=== PATIENT | female | born 1980 | race Caucasian/White ===

== ENCOUNTER → 2016-10-01 | Day surgery (SDC) | payer MEDICAID ==
[~2016-10-01] MED LIST: BREAST PUMP1 MI1; BUPIVACAINE HCL PF 0.25% 30 ML VIAL ONE; CLINDAMYCIN PHOS 600 MG/4 ML VIAL ONE; IBUP800T23 PO; KETOROLAC TROMETHAMINE 30 MG/ML (IVP) VIAL IV PUSH ONE; LACTATED RINGER'S 1000 ML INJ 1,000 ML ONE; MEPERIDINE HCL 25 MG/ML VIAL ONE; MIDAZOLAM HCL 2 MG/2 ML VIAL ONE; PREN0.01 PO; PROPOFOL 200 MG/20 ML AMP IV ONE; SODIUM CHLORIDE 0.9% SOLN 100 ML BAG IV ONE; ZOFR4TAB3 SL
--- NOTE | 2016-10-05 20:11 | MP ---
cc: LAKHWINDER DAVIES DATE OF SURGERY 10/01/16 PREOPERATIVE DIAGNOSIS Patient completed childbearing for elective sterilization. PROCEDURE Laparoscopic bilateral tubal ligation exam under anesthesia. POSTOPERATIVE DIAGNOSIS Patient completed childbearing for elective sterilization. SURGEON Beth Davies MD ANESTHESIA General with LMA ESTIMATED BLOOD LOSS None. DRAINS None OPERATIVE FINDINGS The patient had a retroverted normal-sized uterus, fallopian tubes and adnexa were normal. There was no peritoneal disease. Good pelvic support was noted. INDICATIONS FOR PROCEDURE The patient completed childbearing and consented for permanent sterilization by tubal ligation understanding the potential risks, benefits, complication and failure. DESCRIPTION OF PROCEDURE The patient received clindamycin as an alternative to Ancef for prophylactic antibiotic. She received that prior to going back to the operating room. In the operating room, she underwent general anesthesia with endotracheal intubation using an LMA. She was carefully positioned in dorsolithotomy position with Tunde stirrups on lower extremities and sequentials were placed for VTE prophylaxis. She was prepped and draped. Time-out was conducted agreed by all present in the room. Red Barriga catheter was used to drain the bladder of about 10 mL of clear urine. Chelsea speculum was used to examine the cervix which was midline secured with a single-tooth tenaculum and then uterine sound was placed in a midline position to about 7 cm and then a Hulka tenaculum was used to secure the cervix for manipulation during the procedure. The single tooth was removed. Retractor was removed. Gloves were changed. The abdomen was examined. The umbilicus was injected with 0.25% plain Marcaine about 4 mL. A small stab wound made with a #11 blade allowing access with a visible port trocar using a 5 mm scope. Direct entry into the perineal cavity was accomplished without complication or injury to any adjacent vital structures. Insufflation was conducted at low pressure. The patient was then positioned in Trendelenburg positioning. Suprapubic port was placed under direct vision and again using a 5 mm trocar, the Kassiinger was then utilized to electrodesiccate each fallopian tube. Complete review of the anatomy in the patient's pelvis was completed prior to that the electrodesiccation started just distal to the cornua and continued to the ampulla. Good result was noted. No complication. No bleeding. No hematoma. At the completion of the case, the pneumoperitoneum was decompressed, the trocar were removed and the incisions were closed with subcuticular stitch of 4-0 Monocryl. At the completion of the suture placement Steri-Strips were placed over the incision. The Hulka tenaculum was removed from the cervix with no active bleeding and then the patient was extubated and taken to recovery room on room air. The final count was correct. MD ELI Celaya/ /8:42 AM /8:02 PM
== END | disposition home or self-care (01) ==
LOC: ESDC 06:17
PROVIDERS: ATTEND Obstetrics & Gynecology
DX: Z30.2 Encounter for sterilization (principal)
CPT/HCPCS: 00851; 58670; J1885; J2175; J2250; J3010; J7120